=== PATIENT | female | born 1980 | race Caucasian/White ===

== ENCOUNTER 2020-05-06 18:44 | Emergency (ER) | payer OTHER ==
[2020-05-06 19:17] LABS: BASOPHILS % (AUTO) 0.9 % (0.0-5.0); EOSINOPHILS % (AUTO) 2.8 % (0.0-8.0); HEMATOCRIT 38.8 % (36-48); LYMPHOCYTES % (AUTO) 22.9 % (21.0-51.0); MEAN CORPUSCULAR HGB CONC 33.5 g/dL (32.0-36.0); MEAN CORPUSCULAR VOLUME 89.6 fL (79-99); MONOCYTES % (AUTO) 5.6 % (3.0-13.0); NEUTROPHILS % (AUTO) 67.1 % (40.0-77.0); PLATELET COUNT (AUTO) 272 K/uL (130-400); RED BLOOD CELL COUNT(AUTO) 4.33 MIL/uL (4.00-5.50); RED CELL DISTRIBUTION WIDTH 12.6 % (11.0-15.5); WHITE BLOOD COUNT (AUTO) 8.6 K/uL (4.8-10.8)
[2020-05-06 19:30] LABS: CREATININE 0.7 mg/dL (0.5-1.5); POTASSIUM 3.8 mmol/L (3.5-5.1)
[2020-05-06 19:31] LABS: INR 0.92 (0.85-1.15); PARTIAL THROMBOPLASTIN TIME 21.4 SEC (26.3-35.5)
[2020-05-06 19:36] LABS: ALBUMIN 3.8 g/dL (3.5-5.0); BILIRUBIN,TOTAL 0.4 mg/dL (0.2-1.0); TOTAL PROTEIN, SERUM 7.5 g/dL (6.0-8.3)
[2020-05-06 20:15] LABS: APPEARANCE,URINE Clear (CLEAR); BILIRUBIN,URINE Negative (NEGATIVE); COLOR,URINE Yellow (YELLOW); GLUCOSE, URINE (UA) Negative (NEGATIVE); KETONES,URINE Negative (NEGATIVE); LEUKOCYTE ESTERASE ,URINE Trace (NEGATIVE); NITRATE,URINE Negative (NEGATIVE); OCCULT BLOOD,URINE Negative (NEGATIVE); PH,URINE 6.5 (5.0-8.0); PROTEIN,URINE Negative (NEGATIVE)
[2020-05-06 20:16] LABS: HCG,QUAL RESULT NEGATIVE (NEGATIVE)
[2020-05-06 20:20] LABS: AMPHET/METH SCREEN,URINE NEGATIVE (NEGATIVE); BARBITURATE SCREEN, URINE NEGATIVE (NEGATIVE); BENZODIAZEPINES SCREEN,URINE NEGATIVE (NEGATIVE); CANNABINOID SCREEN,URINE POSITIVE (NEGATIVE); COCAINE SCREEN,URINE NEGATIVE (NEGATIVE); OPIATE SCREEN,URINE NEGATIVE (NEGATIVE); PHENCYCLIDINE SCREEN,URINE NEGATIVE (NEGATIVE)
[2020-05-06 20:52] LABS: BACTERIA,URINE Few /HPF (None Seen); RBC,URINE 0-1 /HPF (0-1); SQUAMOUS EPITHELIAL CELL,UR Few /HPF (0-2)
[2020-05-06] MEDS ORDERED: METOCLOPRAMIDE 10 MG/2 ML VIAL ONE (22:51)
[2020-05-06] MEDS ORDERED: DiphenhydrAMINE HCL 50 MG/ML VIAL ONE (22:52)
[2020-05-06] MEDS ORDERED: KETOROLAC TROMETHAMINE 30MG/ML ONE (22:52)
== END 2020-05-06 23:49 | disposition home or self-care (01) ==
LOC: EDH 18:44
DX: G43.109 Migraine with aura, not intractable, without status migrainosus (principal); R03.0 Elevated blood-pressure reading, without diagnosis of hypertension; F32.9 Major depressive disorder, single episode, unspecified; Z79.899 Other long term (current) drug therapy; Z87.891 Personal history of nicotine dependence
CPT/HCPCS: 36415; 70450; 80053; 80305; 81001; 81025; 82550; 82948; 84484; 85025; 85610; 85730; 93005; 96374; 96375; 99285; J1200; J1885; J2765

== ENCOUNTER 2020-11-16 15:55 | Emergency (ER) | payer OTHER ==
[2020-11-16 16:22] LABS: APPEARANCE,URINE Cloudy (CLEAR); BILIRUBIN,URINE Negative (NEGATIVE); COLOR,URINE Yellow (YELLOW); GLUCOSE, URINE (UA) Negative (NEGATIVE); KETONES,URINE Negative (NEGATIVE); LEUKOCYTE ESTERASE ,URINE Negative (NEGATIVE); NITRATE,URINE Negative (NEGATIVE); OCCULT BLOOD,URINE Negative (NEGATIVE); PROTEIN,URINE Negative (NEGATIVE)
[2020-11-16 16:24] LABS: HCG,QUAL RESULT NEGATIVE (NEGATIVE)
[2020-11-16 16:55] LABS: BASOPHILS % (AUTO) 1.1 % (0.0-5.0); EOSINOPHILS % (AUTO) 3.2 % (0.0-8.0); HEMATOCRIT 38.8 % (36-48); LYMPHOCYTES % (AUTO) 20.7 % (21.0-51.0); MEAN CORPUSCULAR HGB CONC 33.8 g/dL (32.0-36.0); MONOCYTES % (AUTO) 7.9 % (3.0-13.0); NEUTROPHILS % (AUTO) 66.7 % (40.0-77.0); PLATELET COUNT (AUTO) 293 K/uL (130-400); RED BLOOD CELL COUNT(AUTO) 4.36 MIL/uL (4.00-5.50); RED CELL DISTRIBUTION WIDTH 12.9 % (11.0-15.5); WHITE BLOOD COUNT (AUTO) 8.1 K/uL (4.8-10.8)
[2020-11-16] MEDS ORDERED: ONDANSETRON 4MG INJ ONE (16:58)
[2020-11-16] MEDS ORDERED: 0.9%NACL 1000ML 1,000 ML IV ONE (16:58)
[2020-11-16] MEDS ORDERED: MORPHINE 4 MG SYG ONE (16:58)
[2020-11-16 17:08] LABS: CREATININE 0.7 mg/dL (0.5-1.5); POTASSIUM 3.8 mmol/L (3.5-5.1)
[2020-11-16 17:10] LABS: ALBUMIN 3.9 g/dL (3.5-5.0); BILIRUBIN,TOTAL 0.3 mg/dL (0.2-1.0); TOTAL PROTEIN, SERUM 7.3 g/dL (6.0-8.3)
[2020-11-16] MEDS ORDERED: IOHEXOL-350 75 ML VIAL IV ONE (17:33)
[2020-11-16] MEDS ORDERED: KETOROLAC 30MG VIAL (30MG/ML) ONE (18:17)
== END 2020-11-16 18:37 | disposition home or self-care (01) ==
LOC: EDH 15:55
DX: N20.0 Calculus of kidney (principal); R10.9 Unspecified abdominal pain; Z90.49 Acquired absence of other specified parts of digestive tract
CPT/HCPCS: 36415; 74177; 80053; 81003; 81025; 83690; 85025; 96361; 96374; 96375; 99285; J1885; J2270; J2405; J7030; Q9967

== ENCOUNTER 2021-02-23 06:12 | Emergency (ER) | payer OTHER ==
[~2021-02-23] VITALS: Ht 167.6 cm; Wt 83.9 kg
[2021-02-23 08:21] VITALS: BP 116/78
[2021-02-23 08:54] LABS: BASOPHILS % (AUTO) 0.3 % (0.0-5.0); EOSINOPHILS % (AUTO) 1.9 % (0.0-8.0); HEMATOCRIT 47.6 % (36-48); LYMPHOCYTES % (AUTO) 6.6 % (21.0-51.0); MEAN CORPUSCULAR HEMOGLOBIN 29.6 pg (27.0-33.0); MEAN CORPUSCULAR HGB CONC 33.4 g/dL (32.0-36.0); MEAN CORPUSCULAR VOLUME 88.6 fL (79-99); NEUTROPHILS % (AUTO) 84.4 % (40.0-77.0); PLATELET COUNT (AUTO) 252 K/uL (130-400); RED BLOOD CELL COUNT(AUTO) 5.37 MIL/uL (4.00-5.50); RED CELL DISTRIBUTION WIDTH 13.2 % (11.0-15.5); WHITE BLOOD COUNT (AUTO) 11.7 K/uL (4.8-10.8)
[2021-02-23] MEDS ORDERED: 0.9%NACL 1000ML 1,000 ML IV ONE ×4 (08:54→10:41)
[2021-02-23] MEDS ORDERED: ONDANSETRON 4MG INJ IVP ONE ×2 (09:00→10:30)
[2021-02-23] MEDS ORDERED: MORPHINE 4 MG SYG IVP ONE ×2 (09:00→10:30)
[2021-02-23] MEDS ORDERED: HYOSCYAMINE SULFATE 0.125 MG TAB.SUBL SL SCH (09:00)
[2021-02-23 09:02] LABS: ALBUMIN 3.9 g/dL (3.5-5.0); BILIRUBIN,TOTAL 0.5 mg/dL (0.2-1.0); CREATININE 0.6 mg/dL (0.5-1.5); TOTAL PROTEIN, SERUM 7.5 g/dL (6.0-8.3)
[2021-02-23 09:09] LABS: APPEARANCE,URINE Clear (CLEAR); BILIRUBIN,URINE Negative (NEGATIVE); COLOR,URINE Dark Yellow (YELLOW); GLUCOSE, URINE (UA) Negative (NEGATIVE); KETONES,URINE 15 mg/dL (NEGATIVE); LEUKOCYTE ESTERASE ,URINE Trace (NEGATIVE); NITRATE,URINE Negative (NEGATIVE); OCCULT BLOOD,URINE Negative (NEGATIVE); PH,URINE 5.5 (5.0-8.0); PROTEIN,URINE Negative (NEGATIVE)
[2021-02-23 09:12] LABS: HCG,QUAL RESULT NEGATIVE (NEGATIVE)
[2021-02-23 09:17] LABS: BACTERIA,URINE Rare /HPF (None Seen); RBC,URINE 0-1 /HPF (0-1); SQUAMOUS EPITHELIAL CELL,UR Few /HPF (0-2); WBC,URINE 0-1 /HPF (0-1)
[2021-02-23 11:48] VITALS: BP 102/63
[2021-02-23] MEDS ORDERED: ONDA4TAB10 PO (12:42)
== END 2021-02-23 13:20 | disposition home or self-care (01) ==
LOC: EDH 06:12
DX: K52.9 Noninfective gastroenteritis and colitis, unspecified (principal); E86.0 Dehydration; F41.9 Anxiety disorder, unspecified; Z79.899 Other long term (current) drug therapy
CPT/HCPCS: 36415; 74176; 80053; 81001; 81025; 82550; 83690; 85025; 96361; 96374; 96375; 96376; 99284; J2270 ×2; J2405 ×2; J7030 ×2